=== PATIENT | male | born 1990 | race Caucasian/White ===

== ENCOUNTER 2022-04-04 20:22 | Emergency (ER) | payer OTHER ==
[2022-04-04 20:39] VITALS: BP 122/68; PULSE 73; RESP 18; TEMP 98.2
[2022-04-04] MEDS ORDERED: MORPHINE SULFATE 4 MG/ML SYRINGE IM STA (21:00)
[2022-04-04] MEDS ORDERED: KETOROLAC 15 MG/ML 1 ML VIAL IM STA (21:00)
[2022-04-04] MEDS ORDERED: LIDOCAINE 1% INJ 10MG/ML (5 ML VIAL-PF) SQ ONE (21:01)
--- NOTE | 2022-04-04 21:08 | ED ---
Upper Extremity HPI - General Chief Complaint: Extremity Injury, Upper Stated Complaint: R Hand injury Time Seen by Provider: 04/04/22 20:55 Source: patient, RN notes reviewed Mode of arrival: ambulatory Limitations: no limitations - History of Present Illness Initial Comments: This is a pleasant 32-year-old male who was doing some work around the house about one hour prior to arrival and smashed his right index finger with a sledge hammer. Patient sustained a laceration and injury to the distal aspect of the finger. Patient describing throbbing pain which is exacerbated by movement and palpation. No other injuries. States that his last tetanus shot is [id number]--questionably within 5 years. NOTE that this patient states he is on Augmentin for an ear infection. States he is 2 days into a seven-day course, Augmentin 875 mg twice a day. No headache, no fever or chills, no changes in vision or hearing, no sore throat or difficulty with speech, no neck pain, no chest pain or shortness of breath, no abdominal pain, no nausea or vomiting, no changes in urination or bowel movements, no numbness or tingling,, no skin rashes or lesions. MD Complaint: Injury to:: right, finger - Related Data Previous Rx's Medication Instructions Recorded HYDROcodone/APAP 5-325MG [[place] 1 tab PO Q6HR PRN 3 Days #12 tab 04/04/22 5-325] Ibuprofen [Motrin] 600 mg PO Q8HR PRN #30 tab 04/04/22 Allergies Allergy/AdvReac Type Severity Reaction Status Date / Time No Known Allergies Allergy Verified 04/04/22 20:37 Review of Systems ROS Statement: Those systems with pertinent positive or pertinent negative responses have been documented in the HPI. ROS Other: All systems not noted in ROS Statement are negative. Past Medical History Past Medical History: No Reported History History of Any Multi-Drug Resistant Organisms: None Reported Additional Past Surgical History / Comment(s): VASECTOMY Past Psychological History: No Psychological Hx Reported Smoking Status: Never smoker Past Alcohol Use History: None Reported Past Drug Use History: None Reported General Exam Limitations: no limitations Course Vital Signs 04/04/22 20:37 Temperature 98.2 F Pulse Rate 73 Respiratory 18 Rate Blood Pressure 122/68 O2 Sat by Pulse 98 Oximetry - Reevaluation(s) Reevaluation #1: 04/04/22 21:38 Patient has evidence of open fracture. I am dose of Unasyn ordered. This was ordered at 9:37 PM. Procedures - Laceration Laceration #1 Consent Obtained: verbal consent Indication: laceration Site: upper extremity (Right index finger) Size (cm): 4 Description: irregular, clean Depth: simple, single layer Anesthetic Used: lidocaine 1% Anesthesia Technique: nerve block (Digital block) Amount (mls): 3 Pre-repair: wound explored, irrigated extensively, foreign body removed Type of Sutures: nylon Size of Sutures: 5-0 Number of Sutures: 4 Technique: simple, interrupted Additional Comments: Patient has irregular laceration to the distal aspect of the right index finger. There is obvious involvement of the bone on gross examination. Wound was irrigated copiously with saline, 250 mL. Minimal debridement of devitalized skin tissue. There debridement was 1 x 1 cm with sterile forceps and scissors. 4 simple interrupted sutures used to loosely approximate skin edges. The tendon was difficult to visualize. Distal sensation was intact prior to anesthesia. Patient appeared to have good blood flow to the skin bridge. - Orthopedic Splinting/Casting Injury #1 Side: right Upper Extremity Injury Location: finger Upper Extremity Immobilizer: finger (other) Additional Comments: Neurovascular status intact. Post-application. Medical Decision Making - Medical Decision Making Patient has a fracture to the distal phalanx of the right index finger. Note that the patient is already on antibiotics as he has been on Augmentin for 2 days for an ear infection. I'm going to add an additional dose of Unasyn 3 g IM. This was done within 75 minutes. Patient was told to return to the ER for any signs or symptoms worsen. Told to return immediately if any other problems arise. All questions answered. Treatment plan discussed. Patient in agreement Every effort has been made to ensure accuracy of this dictation. However, due to the limitations of electronic medical records and dictation devices, errors in charting still occur. The case was discussed in detail with ED attending physician. Presentation, findings, treatment plan discussed in detail. I did touch base with Robinson Sims the orthopedic physician expanded function dental assistant, patient to call first thing Thursday morning to set up an appointment with a hand surgeon. Impression physician is Dr. Hart Disposition Clinical Impression: Open fracture of distal phalanx of right index finger Disposition: HOME SELF-CARE Condition: Stable Instructions (If sedation given, give patient instructions): Laceration (ED), Hand Fracture (ED) Additional Instructions: Wash the wound starting Thursday with warm soap and water. Apply antibiotic ointment as directed. Keep covered with a sterile dressing, use the finger splint to protect the tip of the finger. Call to set up an orthopedic appointment--call 8 AM Thursday to set up an appointment with Dr. Lagos Continue the amoxicillin/clavulanic acid as directed. Your tetanus was updated Told to return immediately if any other problems arise. All questions answer ed. Treatment plan discussed. Patient in agreement Every effort has been made to ensure accuracy of this dictation. However, due to the limitations of electronic medical records and dictation devices, errors in charting still occur. Prescriptions: Ibuprofen [Motrin] 600 mg PO Q8HR PRN #30 tab PRN Reason: Pain HYDROcodone/APAP 5-325MG [[place] 5-325] 1 tab PO Q6HR PRN 3 Days #12 tab PRN Reason: Pain Is patient prescribed a controlled substance at d/c from ED?: Yes Referrals: Phil Lagos DO [Doctor of Osteopathic Medicine] - 04/07/22 8:00 am Time of Disposition: 22:31
--- NOTE | 2022-04-04 21:17 | XR ---
EXAMINATION TYPE: XR finger RT DATE OF EXAM: 04/04/2022 COMPARISON: NONE HISTORY: Pain TECHNIQUE: 3 views FINDINGS: There is a transverse fracture through the midshaft of the distal phalanx of the middle fin kuldip. There is some mild anterior angulation and comminution at the fracture site. No dislocation. IMPRESSION: Fracture of the distal phalanx of the middle finger.
[2022-04-04] MEDS ORDERED: AMPICILLIN-SULBACTAM 3 GM VIAL IM STA (21:37)
[2022-04-04] MEDS ORDERED: BACITRACIN OINT 1 EACH PACKET TOPICAL ONE (22:04)
[2022-04-04] MEDS ORDERED: DIPH,PERTUS(ACELL)TETVAC-LF 0.5 ML VIAL IM ONE (22:13)
== END 2022-04-05 00:10 | disposition home or self-care (01) ==
LOC: EC 20:22
DX: S62.630A Displaced fracture of distal phalanx of right index finger, initial encounter for closed fracture (principal); W27.8XXA Contact with other nonpowered hand tool, initial encounter
CPT/HCPCS: 73140; 90715; 12002; 99283; 96372; 90471; 29125; J2270; J2001; J0295; J1885

== ENCOUNTER 2022-04-09 14:26 | Day surgery (SDC) | payer OTHER ==
[2022-04-07 14:57] VITALS: BMI 25.1
[~2022-04-09 14:26] MED LIST: HYDROmorphone 0.5 MG/0.5 ML SYRINGE IVP PRN; LACTATED RINGERS 1,000 ML IV SCH
[2022-04-09 14:53] VITALS: RESP 18; TEMP 97.1
[2022-04-09] MEDS ORDERED: ONDANSETRON 4 MG/2 ML VIAL ONE (14:56)
[2022-04-09] MEDS ORDERED: DEXAMETHASONE SOD PHOSPHATE 4 MG/ML 1 ML VIAL IV ONE (15:05)
[2022-04-09] MEDS ORDERED: BUPIVACAINE (PF) 0.5% 30 ML VIAL SQ ONE (16:52)
[2022-04-09] MEDS ORDERED: LIDOCAINE 1%-EPI 1:100,000 20 ML VIAL SQ ONE (16:52)
[2022-04-09 17:37] VITALS: BP 137/78; PULSE 78
--- NOTE | 2022-04-11 16:29 | P.OP ---
Date of Procedure: 04/09/22 Preoperative Diagnosis: Right index finger crush injury with open distal phalanx fracture Postoperative Diagnosis: Same Procedure(s) Performed: 1. Right index finger distal phalanx open reduction internal fixation 2. Right index finger irrigation and debridement Anesthesia: [facility] [place] Surgeon: Jessica Lucas Estimated Blood Loss (ml): 5 Condition: stable Disposition: PACU Indications for Procedure: Patient is a 32 year old male who smashed his finger while pounding in wooden stakes with a mallet. He sustained an open fracture of the distal phalanx that is quite displaced. We had a long discussion about his treatment options and he would like to proceed with an open reduction internal fixation with a pin. Description of Procedure: THe patient, operative extremity, and procedure were identified in the preop holding area. After informed consent was obtained, he was brought back to the OR where a local block was performed with 1% lidocaine with epi and .5% marcaine. THe extremtiy was then prepped and draped in normal sterile fashion. After a formal timeout was performed, a finger tourniquet was placed. The stitches were removed from his wound and it was copiously irrigated with normal saline. All nonviable tissue was carefully debrided to the level of the bone. Attention was then turned to the fracture. A 4.5 K wire was inserted into the distal phalanx in a retrograde fashion. It was then used as a joystick to reduce the fracture. THe K wire was then driven across the fracture site and through the DIP joint to stabilize it. Reduction was confirmed on fluoroscopy. THe finger tourniquet was then removed. Hemostasis was achieved and the wound was closed with 4.0 chromic suture. THe wound was dressed with adaptic, david, and coban. Patient was aroused by the anesthesia team and brought to PACU in stable condition.
== END 2022-04-09 17:56 | disposition home or self-care (01) ==
LOC: OR 14:26
PROVIDERS: ATTEND Orthopaedic Surgery Hand Surgery
DX: S67.190A Crushing injury of right index finger, initial encounter (principal); W23.0XXA Caught, crushed, jammed, or pinched between moving objects, initial encounter
CPT/HCPCS: 11012; C1713; J1100; J0690; J2405